=== PATIENT | male | born 1950 | race Caucasian/White ===

== ENCOUNTER 2024-07-07 13:28 | Emergency (ER) | payer MEDICARE, SELFPAY ==
[2024-07-07 13:41] VITALS: BP 111/64; PULSE 88; RESP 16; TEMP 36.9; O2SAT 97
--- NOTE | 2024-07-07 13:48 | ED.DENTAL ---
HPI - Dental/Oral General Chief complaint: Dental/Oral Stated complaint: Mouth Rash Time Seen by Provider: 07/07/24 13:48 Source: patient Mode of arrival: ambulatory Limitations: no limitations History of Present Illness HPI Narrative: 74 yo M presents with c/o white in mouth with some soreness and feels filmy in mouth. Concerned for thrush. Does not wear his dentures. Uses albuterol inhaler. All systems reviewed and negative except as noted above. Related Data Home Medications ?Medication ?Instructions ?Recorded ?Confirmed ?Last Taken ?Type albuterol sulfate 90 mcg/actuation inhalation 07/07/24 Unknown History aerosol inhaler alprazolam 0.5 mg tablet mg 07/07/24 Unknown History aripiprazole 10 mg tablet mg 07/07/24 Unknown History atorvastatin 80 mg tablet mg 07/07/24 Unknown History blood sugar diagnostic (True 07/07/24 07/07/24 Unknown History Metrix Glucose Test Strip) carisoprodol 350 mg tablet mg 07/07/24 Unknown History clopidogrel 75 mg tablet mg 07/07/24 Unknown History diazepam 10 mg tablet mg 07/07/24 Unknown History empagliflozin 25 mg tablet mg 07/07/24 Unknown History (Jardiance) fluoxetine 20 mg capsule mg 07/07/24 Unknown History isosorbide mononitrate 30 mg mg PO 07/07/24 Unknown History tablet,extended release 24 hr metformin 1,000 mg tablet mg 07/07/24 Unknown History metoprolol tartrate 25 mg tablet mg 07/07/24 Unknown History omeprazole 40 mg capsule,delayed mg 07/07/24 Unknown History release potassium chloride 20 mEq meq PO 07/07/24 Unknown History tablet,extended release(part/cryst) Allergies Allergy/AdvReac Type Severity Reaction Status Date / Time Penicillins Allergy Unknown Verified 07/07/24 13:32 Contrast Media Allergy Unknown Uncoded 07/07/24 13:32 Review of Systems Review of Systems: CONSTITUTIONAL: Denies fever, chills, or sweats. EYES: Denies visual changes, redness, or discharge. ENT: Denies rhinorrhea, congestion, sore throat, or otalgia. Reports white film inside mouth CARDIOVASCULAR: Denies chest pain, palpitations, or edema. RESPIRATORY: Denies cough or dyspnea. GASTROINTESTINAL: Denies abdominal pain, nausea, vomiting, or diarrhea. GENITOURINARY: Denies dysuria or hematuria. SKIN: Denies rash or itching. MUSCULOSKELETAL: Denies back pain, joint pain, or myalgia. NEUROLOGIC: Denies headache, numbness, or weakness. PSYCHIATRIC: Denies anxiety or depression. All other systems reviewed are negative, except as documented in HPI. PMFSH Comments At time of signature, agree with nursing past medical, surgical, social and family history. There is no relevant family history pertinent to the presenting complaint. Exam Narrative: GENERAL: This is a well-nourished, well-developed patient, in no apparent distress. HEAD: normocephalic, atraumatic. EYES: PERRL. Sclera clear/white. Vision is grossly intact. EARS: External ears normal NOSE: External nose normal MOUTH: white plaques to tongue and buccal mucosa without erythema or swelling NECK: Neck supple, non-tender without lymphadenopathy, masses or thyromegaly. CARDIOVASCULAR: Regular rate and rhythm without murmurs, gallops, or rubs. RESPIRATORY: Clear to auscultation. Breath sounds equal bilaterally. No wheezes, rales, or rhonchi. SKIN: warm, Dry, intact with no suspicious lesions or rash, good texture and turgor. NEURO: awake, alert, and oriented to person, place and time. There were no obvious focal neurologic abnormalities. EXTREMITIES: No joint tenderness, effusion, or edema noted. Course Course Level of Care: Express Care Visit Vital Signs Vital signs: Vital Signs Temperature 36.9 C 07/07/24 13:41 Pulse Rate 88 07/07/24 13:41 Respiratory Rate 16 07/07/24 13:41 Blood Pressure 111/64 07/07/24 13:41 Pulse Oximetry 97 07/07/24 13:41 Oxygen Delivery Room Air 07/07/24 13:41 Temperature 36.9 C 07/07/24 13:41 Pulse Rate 88 07/07/24 13:41 Respiratory Rate 16 07/07/24 13:41 Blood Pressure 111/64 07/07/24 13:41 Pulse Oximetry 97 07/07/24 13:41 Oxygen Delivery Room Air 07/07/24 13:41 reviewed MDM - Dental/Oral MDM Narrative Medical decision making narrative: Please be advised this is a medical document. It is intended for [id number] communication. It is written in medical language and may contain unfamiliar abbreviations or verbiage. Medical documents are intended to carry relevant information, facts as evident, and the clinical opinion of the practitioner at the time of the encounter. This report may have been done utilizing a voice recognition system. Attempts have been made to correct errors. However, there may be uncorrected grammatical, spelling, and recognition errors present. The file time of this note does not necessarily represent the time of service. Discharge Plan Discharge Clinical Impression: Oral thrush Patient Disposition: Home, Self-Care Condition: Stable Instructions: Oral Candidiasis (ED) Additional Instructions: Use medication at prescribed. Rinse mouth after using inhaler. See your doctor if symptoms not improving. Patient Language: Wolof Prescriptions: New nystatin 100,000 unit/mL suspension 5 ml PO QID 10 Days Qty: 200 0RF Rx Instructions: swish around mouth, hold in mouth for a few minutes and then swallow No Action carisoprodol 350 mg tablet atorvastatin 80 mg tablet isosorbide mononitrate 30 mg tablet extended release 24 hr PO clopidogrel 75 mg tablet (DME) True Metrix Glucose Test Strip Strip MISCELLANEOUS omeprazole 40 mg capsule,delayed release(DR/EC) alprazolam 0.5 mg tablet potassium chloride 20 mEq tablet,ER particles/crystals PO metformin 1,000 mg tablet diazepam 10 mg tablet albuterol sulfate 90 mcg/actuation HFA aerosol inhaler INHALATION fluoxetine 20 mg capsule aripiprazole 10 mg tablet metoprolol tartrate 25 mg tablet Jardiance 25 mg tablet Follow-up/Referrals: Carlton,KYLE Lopez [Primary Care Provider] - Time of Disposition: 13:54
== END 2024-07-07 13:58 | disposition home or self-care (01) ==
PROVIDERS: Emergency Provider Nurse Practitioner Family; PCP Physician Assistant Medical
DX: B37.0 Candidal stomatitis (principal)
CPT/HCPCS: 99213; G0463